=== PATIENT | male | born 1975 | race Caucasian/White ===

== ENCOUNTER 2017-12-29 09:41 | Emergency (ER) | payer SELFPAY ==
[~2017-12-29] VITALS: Ht 175.3 cm; Wt 82.0 kg
[2017-12-29 10:07] VITALS: BP 154/98
[2017-12-29] MEDS ORDERED: SODIUM CHLORIDE 0.9% 1,000 ML IV ONE (10:30)
[2017-12-29 10:53] LABS: HEMATOCRIT. 42.6 % (42.0-52.0); HEMOGLOBIN. 15.1 g/dL (14.0-18.0); MEAN CORPUSCULAR VOLUME 81.6 fL (80.0-94.0); MEAN PLATELET VOLUME 8.8 fl (7.4-10.4); PLATELET 242 x1000/uL (130-400); RED BLOOD CELL COUNT 5.22 mill/uL (4.7-6.1); RED CELL DISTRIBUTION WIDTH 13.4 % (11.6-14.6)
[2017-12-29 10:56] LABS: CHLORIDE 104 mEq/L (98-107); ETHANOL BLOOD < 10 mg/dL
[2017-12-29 12:12] LABS: PLATELET ESTIMATE NORMAL
== END 2017-12-29 12:14 | disposition left against medical advice (07) ==
LOC: ER 09:41
DX: L55.9 Sunburn, unspecified (principal); E66.9 Obesity, unspecified; Z68.27 Body mass index [BMI] 27.0-27.9, adult
CPT/HCPCS: 36415; 70450; 80053; 85025; 93005; 96360; 96361; 99285; G0482; J7030; Z7610